=== PATIENT | male | born 1965 | race Hispanic/Latino ===

== ENCOUNTER 2019-06-09 15:57 | Emergency (ER) | payer OTHER ==
[2019-06-09] MEDS ORDERED: ACETAMINOPHEN EXTRA STRENGTH 500 MG TABLET ONE (16:20)
== END 2019-06-09 17:30 | disposition home or self-care (01) ==
LOC: EDSEX 15:57 → EDH 15:57
DX: S00.432A Contusion of left ear, initial encounter (principal); S19.9XXA Unspecified injury of neck, initial encounter; S29.9XXA Unspecified injury of thorax, initial encounter; V49.59XA Passenger injured in collision with other motor vehicles in traffic accident, initial encounter; Y93.89 Activity, other specified; Y92.89 Other specified places as the place of occurrence of the external cause; Y99.8 Other external cause status
CPT/HCPCS: 70450; 72125